=== PATIENT | female | born 1990 | race Caucasian/White ===

== ENCOUNTER 2017-07-19 20:35 | Emergency (ER) | payer OTHER ==
[2017-07-19 20:52] VITALS: BP 134/75; PULSE 124; TEMP 98.7; BMI 22.4
--- NOTE | 2017-07-19 20:55 | PDOC ---
Rapid Medical Evaluation Chief Complaint: Laceration Time Seen by Provider: 07/19/17 20:50 Medical Evaluation: Allergies Allergy/AdvReac Type Severity Reaction Status Date / Time No Known Allergies Allergy Verified 07/19/17 20:52 Vital Signs Temp Pulse Resp BP Pulse Ox 98.7 F 124 H 20 134/75 100 07/19/17 20:47 07/19/17 20:47 07/19/17 20:47 07/19/17 20:47 07/19/17 20:47 07/19/17 20:52 The patient presents with a chief complaint of:. Accidental fall in stone fireplace step, hitting right knee, 3 cm laceration to the right knee. I have performed a brief in-person evaluation of this patient. Pertinent physical exam findings: vss, laceration to the right knee measuring about 3 cm. No active bleeding, I have ordered the following: Tetanus UTD, xray right knee, urine preg. The patient will proceed to the ED for further evaluation. Discharge Disposition - Diagnosis Knee injury, Laceration of knee - Referrals - Patient Instructions - Post Discharge Activity
--- NOTE | 2017-07-19 22:09 | PDOC ---
History of Present Illness - General Chief Complaint: Laceration Stated Complaint: CUT ON LEG Time Seen by Provider: 07/19/17 20:50 History Source: Patient Exam Limitations: No Limitations - History of Present Illness Initial Comments: 07/19/17 22:04 26-year-old female with no medical history presents to the emergency department complaining of laceration to the right proximal lower leg after she slipped and hit her right leg on his stone edge of her fireplace. Patient states bleeding controlled with direct pressure prior to her arrival to the ER. Patient denies extremity numbness or tingling sensation. Patient denies head injuries, neck or back pains. Immunizations within 5 years. Patient adamantly refuses U . Timing/Duration: reports: just prior to arrival Location: reports: extremities (right prox lower leg) Past History - Past Medical History Allergies/Adverse Reactions: Allergies Allergy/AdvReac Type Severity Reaction Status Date / Time No Known Allergies Allergy Verified 07/19/17 20:52 Home Medications: Ambulatory Orders NK [No Known Home Medication] 07/19/17 COPD: No - Immunization History TDAP Vaccination: No Immunization Up to Date: No - Suicide/Smoking/Psychosocial Hx Smoking History: Never smoked Have you smoked in the past 12 months: No Information on smoking cessation initiated: No Hx Alcohol Use: No Drug/Substance Use Hx: No Substance Use Type: None Review of Systems - Review of Systems Able to Perform ROS?: Yes Comments:: 07/19/17 22:05 CONSTITUTIONAL: Absent: fever, chills, diaphoresis, generalized weakness, malaise, loss of appetite HEENT: Absent: rhinorrhea, nasal congestion, throat pain, throat swelling, difficulty swallowing, mouth swelling, ear pain, eye pain, visual Changes CARDIOVASCULAR: Absent: chest pain, loss of consciousness, palpitations, irregular heart rate, peripheral edema RESPIRATORY: Absent: cough, shortness of breath, dyspnea with exertion, orthopnea, wheezing, stridor, hemoptysis GASTROINTESTINAL: Absent: abdominal pain, abdominal distension, nausea, vomiting, diarrhea, constipation, melena, hematochezia MUSCULOSKELETAL: Absent: myalgia, arthralgia, joint swelling SKIN: +3cm horizontal laceration to prox ant lower leg Absent: rash, itching, pallor HEMATOLOGIC/IMMUNOLOGIC: Absent: easy bleeding, easy bruising, lymphadenopathy, frequent infections Is the patient limited Frisian proficient: No *Physical Exam - Vital Signs Last Vital Signs Temp Pulse Resp BP Pulse Ox 98.7 F 124 H 20 134/75 100 07/19/17 20:47 07/19/17 20:47 07/19/17 20:47 07/19/17 20:47 07/19/17 20:47 - Physical Exam Comments: 07/19/17 22:05 GENERAL: Well developed, well nourished. Awake and alert. No acute distress. MUSCULOSKELETAL Normal range of motion at all joints. No bony deformities or tenderness. No CVA tenderness. EXTREMITIES: 3cm horizontqal partial thickness laceration to right ant prox lower leg neg active bleed 2 point discrimination intact No cyanosis. No clubbing. No edema. No calf tenderness. SKIN: Warm and dry. Normal capillary refill. No rashes. No jaundice. Procedure: right prox ant lower leg 3cm horizontal lac/parital thickness betadine prep 1% lidocaine; 4cc NS irrigation/copious (3) 5.0 vicryl sq simple interrupted (5) 4.0 simple interrupted skin Bacitracin Telfa 4X4 gauze kerlix *DC/Admit/Observation/Transfer Diagnosis at time of Disposition: Laceration of knee Qualifiers: Encounter type: initial encounter Laterality: right Qualified Code(s): S81.011A - Laceration without foreign body, right knee, initial encounter Contusion of knee, right Qualifiers: Encounter type: initial encounter Qualified Code(s): S80.01XA - Contusion of right knee, initial encounter - Discharge Dispostion Disposition: HOME Condition at time of disposition: Stable Admit: No - Referrals Referrals: Delgado Mtz MD [Staff Physician] - - Patient Instructions Printed Discharge Instructions: DI for Laceration Repair Additional Instructions: Keep the incision clean and dry for 24 hours. After 24 hours, you may allow the soap and water to rinse off your incision. Avoid direct pressure of the water to the incision. Pat the incision dry with a clean clothe. Apply a small amount of bacitracin onto the incision. Cover the incision loosely with a bandaid. Take tylenol/motrin as needed for pain. Follow up with your physician or the ER in 48 hours for a wound check. Return to the ER if you notice red streaks, increase redness/swelling/severe pain to the incision. - Post Discharge Activity Forms/Work/School Notes: Back to Work
== END 2017-07-19 23:05 | disposition home or self-care (01) ==
LOC: JERFT 20:35
PROC: 0JQN0ZZ Repair Right Lower Leg Subcutaneous Tissue and Fascia, Open Approach (ICD-10-PCS; principal; 2017-07-19)
DX: S81.011A Laceration without foreign body, right knee, initial encounter (principal); S80.01XA Contusion of right knee, initial encounter; W01.118A Fall on same level from slipping, tripping and stumbling with subsequent striking against other sharp object, initial encounter; Y93.89 Activity, other specified; Y92.038 Other place in apartment as the place of occurrence of the external cause; Y99.8 Other external cause status
CPT/HCPCS: 73560-TC-RT-FY; 99281-25

== ENCOUNTER 2017-08-02 17:48 | Emergency (ER) | payer OTHER ==
[2017-08-02 17:53] VITALS: BP 115/66; PULSE 69; TEMP 98; BMI 22.4
--- NOTE | 2017-08-02 17:58 | PDOC ---
Suture Removal/Wound Check HPI - History of Present Illness Chief Complaint: Suture/Staple Removal(Here) Stated Complaint: SUTURE REMOVAL Time Seen by Provider: 08/02/17 17:52 History Source: Yes: Patient Exam Limitations: Yes: No Limitations [facility] Treatment Type of procedure performed on last visit: Yes: Laceration Repair Tetanus Immunization: Yes: Up to Date Antibiotics Prescribed: No Past History - Past Medical History Allergies/Adverse Reactions: Allergies Allergy/AdvReac Type Severity Reaction Status Date / Time No Known Allergies Allergy Verified 08/02/17 17:53 Home Medications: Ambulatory Orders NK [No Known Home Medication] 07/19/17 COPD: No - Immunization History TDAP Vaccination: No Immunization Up to Date: No - Suicide/Smoking/Psychosocial Hx Smoking History: Never smoked Have you smoked in the past 12 months: No Information on smoking cessation initiated: No Hx Alcohol Use: No Drug/Substance Use Hx: No Substance Use Type: None Suture Removal/Wound Check PE - Physical Exam Laceration/Wound Check Symptoms: reports: None Comments: 08/02/17 18:01 right knee with 6 intact simple interrupted sutures CDI well healed Procedures - Additional Procedures Progress: 08/02/17 18:02 6 simple interrupted sutures removed without difficulty well healed wound *DC/Admit/Observation/Transfer Diagnosis at time of Disposition: Visit for suture removal - Discharge Dispostion Disposition: HOME Condition at time of disposition: Good - Referrals - Patient Instructions Printed Discharge Instructions: DI for Suture Removal Additional Instructions: keep clean and dry apply vitamin E oil or cocoa Butter to the scar 2-3 times a day , when the scabbing has healed - Post Discharge Activity
== END 2017-08-02 18:01 | disposition home or self-care (01) ==
LOC: JERFT 17:48
DX: Z48.02 Encounter for removal of sutures (principal)
CPT/HCPCS: 99281-25